=== PATIENT | male | born 1970 | race Caucasian/White ===

== ENCOUNTER 2019-03-06 08:25 | Outpatient (CLI) | payer OTHER ==
[2019-03-06 09:05] LABS: BASOPHILS % (AUTO) 0.5 % (0.0-2.0); EOSINOPHILS # (AUTO) 0.1 K/uL (0.0-0.4); EOSINOPHILS % (AUTO) 1.3 % (0.0-4.0); HEMATOCRIT 45.5 % (36-54); HEMOGLOBIN 15.4 g/dL (14.0-18.0); LYMPHOCYTES # (AUTO) 1.8 K/uL (1.0-5.5); MEAN CORPUSCULAR HEMOGLOBIN 30 pg (27-31); MEAN CORPUSCULAR HGB CONC 34 % (32-36); MEAN CORPUSCULAR VOLUME 89 fL (79.0-98.0); MONOCYTES # (AUTO) 0.5 K/uL (0.0-1.0); MONOCYTES % (AUTO) 8.3 % (1.7-9.3); NEUTROPHILS # (AUTO) 3.7 K/uL (1.8-7.7); NEUTROPHILS % (AUTO) 60.9 % (40.0-70.0); PLATELET COUNT (AUTO) 217 K/uL (130-430); RED BLOOD CELL COUNT(AUTO) 5.12 MIL/uL (4.2-6.2); RED CELL DISTRIBUTION WIDTH 13.4 % (9.0-15.0)
[2019-03-06 09:38] LABS: CALCIUM 8.4 mg/dL (8.4-11.0); POTASSIUM 4.4 mmol/L (3.5-5.1)
[2019-03-06 09:39] LABS: ALBUMIN 4.1 g/dL (3.4-4.8); CREATININE 0.94 mg/dL (0.55-1.30); THYROID STIMULATING HORMONE 2.89 uIu/mL (0.36-3.74); TOTAL BILIRUBIN 0.4 mg/dL (0.0-1.0); URIC ACID 5.7 mg/dL (2.4-7.0)
[2019-03-06 09:54] LABS: ERYTHROCYTE SEDIMENTATION RATE 9 MM/HR (0-15)
[2019-03-07 15:51] LABS: HEMOGLOBIN A1C 5.8 % (4.8-5.6)
== END 2019-03-06 19:16 | disposition home or self-care (01) ==
LOC: SMI 08:25
PROVIDERS: ATTEND Internal Medicine
DX: Z00.00 Encounter for general adult medical examination without abnormal findings (principal); M19.90 Unspecified osteoarthritis, unspecified site; V89.2XXA Person injured in unspecified motor-vehicle accident, traffic, initial encounter; Y93.89 Activity, other specified; Y92.89 Other specified places as the place of occurrence of the external cause; Y99.8 Other external cause status
CPT/HCPCS: 36415; 80053; 80061; 82306; 82607; 83036; 84443-TC; 84550-TC; 85025; 85651-TC

== ENCOUNTER 2019-10-07 08:50 | Outpatient (CLI) | payer OTHER | END 2019-10-07 20:28 | disposition home or self-care (01) | LOC: SLB 08:50 | PROVIDERS: ATTEND Internal Medicine | DX: Z03.818 Encounter for observation for suspected exposure to other biological agents ruled out (principal) | CPT/HCPCS: C9803; U0003 ==

== ENCOUNTER 2020-03-10 10:58 | Emergency (ER) | payer OTHER, SELFPAY ==
[~2020-03-10] VITALS: Ht 193 cm; Wt 120.2 kg
[2020-03-10 11:00] VITALS: BP_SYST 181
--- NOTE | 2020-03-10 11:00 | NUR ---
BROUGHT INTO ER TENT AND TRIAGED. WILL ASSUME CARE
--- NOTE | 2020-03-10 11:11 | NUR ---
PT STATES THAT HE HAS HEADACHES, SLIGHT COUGH, ACHEY, CHILLS AND LOW GRADE FEVER. STATES HE WORKS IN [employer] AND MAY HAVE BEEN EXPOSED.
--- NOTE | 2020-03-10 11:15 | NUR ---
DR WHITEHEAD OUT TO EVALUATE PT IN TRIAGE TENT
--- NOTE | 2020-03-10 11:45 | NUR ---
Patient given written and verbal discharge instructions and verbalizes understanding. ER MD discussed with patient the results and treatment provided. Patient in stable condition. ID arm band removed. Rx of NONE given. Patient educated on pain management and to follow up with PMD. Pain Scale 0/10. Opportunity for questions provided and answered. Medication side effect fact sheet provided.
[2020-03-10 11:49] VITALS: BP_SYST 133
== END 2020-03-10 11:45 | disposition home or self-care (01) ==
LOC: SED 10:58
DX: B34.9 Viral infection, unspecified (principal); Z88.6 Allergy status to analgesic agent; Z20.828 Contact with and (suspected) exposure to other viral communicable diseases
CPT/HCPCS: 99283; C9803; U0003